=== PATIENT | female | born 1990 | race Two or more races ===

== ENCOUNTER 2017-05-31 11:48 | Outpatient (CLI) | payer BC, OTHER ==
[~2017-05-31 11:48] MED LIST: LACO200T2 PO; LEVE250T2 PO
== END 2017-05-31 23:59 | disposition home or self-care (01) ==
LOC: MRI 11:48
PROVIDERS: ATTEND Family Medicine
DX: M17.12 Unilateral primary osteoarthritis, left knee (principal); M65.862 Other synovitis and tenosynovitis, left lower leg; M25.462 Effusion, left knee
CPT/HCPCS: 73721-TC

== ENCOUNTER 2017-10-13 21:19 | Emergency (ER) | payer OTHER ==
[~2017-10-13] VITALS: Ht 162.6 cm; Wt 54.4 kg
[2017-10-14] MEDS ORDERED: TDAP [DIPH/PERTUSSIS/TET] 0.5 ML VIAL IM ONE ×2 (00:20→00:30)
[2017-10-14] MEDS ORDERED: IBUPROFEN 600 MG TABLET PO ONE ×2 (00:20→00:30)
[2017-10-14] MEDS ORDERED: SILVER SULFADIAZINE CREAM 25 GM TUBE ONE (00:20)
[2017-10-14] MEDS ORDERED: SILVER SULFADIAZINE CREAM 25 GM TUBE TP ONE (00:30)
[2017-10-14 01:10] VITALS: BP 122/65
== END 2017-10-14 01:18 | disposition home or self-care (01) ==
LOC: ER 21:23
DX: T24.211A Burn of second degree of right thigh, initial encounter (principal); G40.909 Epilepsy, unspecified, not intractable, without status epilepticus; Z23 Encounter for immunization; Z88.8 Allergy status to other drugs, medicaments and biological substances; X12.XXXA Contact with other hot fluids, initial encounter; Y93.89 Activity, other specified; Y92.89 Other specified places as the place of occurrence of the external cause; Y99.8 Other external cause status
CPT/HCPCS: 90715